=== PATIENT | female | born 1985 | race Caucasian/White ===

== ENCOUNTER 2020-12-10 15:25 | Emergency (ER) | payer OTHER ==
[~2020-12-10] VITALS: Ht 157.5 cm; Wt 120.2 kg
[2020-12-10 15:30] VITALS: BP 113/62
--- NOTE | 2020-12-10 15:40 | NUR ---
Pt ambulated to room 4
--- NOTE | 2020-12-10 15:45 | NUR ---
[facility] [place] bedside evaluating pt
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
[2020-12-10] MEDS: MORPHINE SULFATE 4 MG/ML SYR IM ONE (15:55)
[2020-12-10] MEDS: ONDANSETRON 4 MG ODT PO ONE (15:56)
--- NOTE | 2020-12-10 15:56 | NUR ---
pt taken to xray via w/c
--- NOTE | 2020-12-10 16:33 | NUR ---
pt returned to bed 4 from xray via w/c
--- NOTE | 2020-12-10 16:35 | NUR ---
pt provided with urine cup to collect UA
[2020-12-10] MEDS ORDERED: LIDO1ADH47 TP (17:10)
[2020-12-10] MEDS ORDERED: METH-1681 PO (17:10)
[2020-12-10] MEDS ORDERED: NAPR-54 PO (17:10)
[2020-12-10 17:24] VITALS: BP 128/65
--- NOTE | 2020-12-10 17:24 | NUR ---
Patient discharged with v/s stable. Written and verbal after care instructions about cervical strain, sprain rehab, contusion, and neck contusion given and explained. Patient alert, oriented and verbalized understanding of instructions. Ambulatory with steady gait. All questions addressed prior to discharge. ID band removed. Patient advised to follow up with PMD. Rx of lidocaine, methocarbamol, naproxen given. Patient educated on indication of medication including possible reaction and side effects. Opportunity to ask questions provided and answered.
== END 2020-12-10 17:24 | disposition home or self-care (01) ==
LOC: MED 15:25
DX: S13.4XXA Sprain of ligaments of cervical spine, initial encounter (principal); S20.212A Contusion of left front wall of thorax, initial encounter; S10.83XA Contusion of other specified part of neck, initial encounter; V49.9XXA Car occupant (driver) (passenger) injured in unspecified traffic accident, initial encounter; Y93.89 Activity, other specified; Y92.89 Other specified places as the place of occurrence of the external cause; Y99.8 Other external cause status
CPT/HCPCS: 71111; 72050; 81002; 81025; 93005; 96372; 99284; J2270; Q0162; 99283